=== PATIENT | female | born 1980 | race African-American/Black ===

== ENCOUNTER 2017-03-24 15:48 | Emergency (ER) | payer MEDICAID, OTHER ==
[~2017-03-24] VITALS: Ht 165.1 cm; Wt 70.0 kg
[2017-03-24 15:50] VITALS: BP 130/96; PULSE 83; RESP 24; TEMP 98.7; O2SAT 97
[2017-03-24] MEDS ORDERED: KETOROLAC TROMETHAMINE 60 MG/2 ML (IM) VIAL IM ONE (16:00)
[2017-03-24] MEDS ORDERED: PERI0.126 SWISH-SPIT (16:04)
[2017-03-24] MEDS ORDERED: AMOX500C PO (16:04)
[2017-03-24] MEDS ORDERED: IBUP1TAB7 PO (16:04)
--- NOTE | 2017-03-24 16:07 | PD ---
HPI Chief Complaint: Oral / Dental Pain or Problem Time Seen by Provider: 16:00 Travel History International Travel<30 days: No Contact w/Intl Traveler<30days: No Traveled to known affect area: No History of Present Illness HPI 36-year-old female presents to emergency Department with complaint of left upper tooth pain that started today. She said she lost her cavity filling a while back with onset of the pain today. Pain is radiating to the left ear. Describes pain as sharp and shooting. Rates pain 10/10. Pain is constantly aggravating. No known relieving factors. Tried taking BC powder for symptom management. Also tried [id number] dental filling. Denies fever, vomiting. Denies sore throat or difficulty swallowing. Has no other medical complaints. No known allergies no other modifying factors or associated signs and symptoms. PFSH Past Medical History ?: Not Social History Tobacco Use: No Allergies-Medications (Allergen,Severity, Reaction): Coded Allergies: No Known Allergies (Unverified , 03/24/17) Reported Meds & Prescriptions Reported Meds & Active Scripts Active Peridex Liq (Chlorhexidine Gluconate (Mouth) Liq) 0.12% Soln 15 Ml SWISH-SPIT BID 10 Days Ibuprofen 800 Mg Tab 800 Mg PO Q6HR PRN Amoxicillin 500 Mg Cap 500 Mg PO BID 10 Days Review of Systems Except as stated in HPI: all other systems reviewed are Neg Physical Exam Narrative GENERAL: Well-nourished, well-developed black female patient, in no acute distress; afebrile, nontoxic-appearing; tearful SKIN: Warm and dry. HEAD: Atraumatic. Normocephalic. No facial edema, erythema, tenderness on palpation. No lymphadenopathy. EYES: Pupils equal and round. No scleral icterus. No injection or drainage. ENT: Mucosa pink and moist. No erythema or exudates. No uvular edema. No uvular , palatal, or tonsillar deviation. Airway patent. EARS: Bilateral pinnae and external canals appear within normal limits. Bilateral tympanic membranes without erythema, dullness or perforation. MOUTH: Mucous membranes moist, no lesions, tongue and gums appear normal. Left upper first molar with tenderness on palpation; large dental cavity noted. Surrounding gingiva is without erythema, edema, drainage. No obvious abscess noted. NECK: Trachea midline. No lymphadenopathy. CARDIOVASCULAR: Regular rate. RESPIRATORY: No accessory muscle use. GASTROINTESTINAL: Rounded. MUSCULOSKELETAL: No obvious deformities. No clubbing. No cyanosis. No edema. NEUROLOGICAL: Awake and alert. Oriented 3. No obvious cranial nerve deficits. Motor grossly within normal limits. Normal speech. PSYCHIATRIC: Appropriate mood and affect; insight and judgment normal. Data Data Last Documented VS Vital Signs Date Time Temp Pulse Resp B/P (MAP) Pulse Ox O2 Delivery O2 Flow Rate FiO2 03/24/17 15:50 98.7 83 24 130/96 (107) 97 Orders Orders Ketorolac Inj (Toradol Inj) (03/24/17 16:00) Ed Discharge Order (03/24/17 16:07) [facility] Medical Decision Making Medical Screen Exam Complete: Yes Emergency Medical Condition: Yes Medical Record Reviewed: Yes Differential Diagnosis Dentalgia, dental cavity, dental abscess, gingivitis, less likely peritonsillar abscess Narrative Course 36-year-old female with dentalgia and dental cavity to left upper first molar. No facial edema or erythema. Patient is afebrile and nontoxic-appearing. Denies fever, vomiting. Toradol administered in the ER. Emergency dental information sheet provided for follow-up. Instructed patient to follow up with dentist. Amoxicillin, Peridex mouth rinse, ibuprofen prescribed for home. Instructed patient to follow up with primary care provider. Patient verbalizes understanding and agreement with treatment plan. Patient is medically cleared and stable for discharge. Discussed reasons to return to the emergency department. Patient agrees with treatment plan. The patients vital signs are stable and the patient is stable for outpatient follow-up and treatment. Patient discharged home, stable and in no acute distress. Diagnosis Primary Impression: Tooth pain Additional Impression: Dental cavity Referrals: [facility]ist Primary Care Physician Patient Instructions: Dental Abscess (ED), Dental Caries (ED), General Instructions, Toothache (ED) Additional Instructions: Complete full course of antibiotics Ibuprofen or Tylenol as directed and as needed to reduce pain and inflammation Use Peridex as directed for oral hygiene Warm or cool compresses to the affected area Follow-up with dentist Follow-up with primary care provider Return to emergency department immediately with worsening of symptoms Med/Other Pt SpecificInfo: Prescription(s) given Scripts Chlorhexidine Gluconate (Mouth) Liq (Peridex Liq) 0.12% Soln 15 ML SWISH-SPIT BID for 10 Days, #300 ML 0 Refills Prov: Bhavya Vaca 03/24/17 Ibuprofen (Ibuprofen) 800 Mg Tab 800 MG PO Q6HR Y for PAIN, #30 TAB 0 Refills Prov: Bhavya Vaca 03/24/17 Amoxicillin (Amoxicillin) 500 Mg Cap 500 MG PO BID for Infection for 10 Days, #20 CAP 0 Refills Prov: Bhavya Vaca 03/24/17 Disposition: 01 DISCHARGE HOME Condition: Stable Bhavya Vaca Mar 24, 2017 16:07
== END 2017-03-24 16:27 | disposition home or self-care (01) ==
LOC: NEPK 15:48
DX: K02.9 Dental caries, unspecified (principal)
CPT/HCPCS: 96372; 99284; J1885

== ENCOUNTER 2017-04-23 16:40 | Emergency (ER) | payer MEDICAID ==
[~2017-04-23] VITALS: Ht 154.9 cm; Wt 71.0 kg
[~2017-04-23 16:40] MED LIST: AMOX500C PO; IBUP1TAB7 PO; PERI0.126 SWISH-SPIT
[2017-04-23 16:41] VITALS: BP 143/87; PULSE 74; RESP 18; TEMP 97.6; O2SAT 99
== END 2017-04-23 19:10 | disposition left against medical advice (07) ==
LOC: NED 16:40
DX: K13.79 Other lesions of oral mucosa (principal); Z53.21 Procedure and treatment not carried out due to patient leaving prior to being seen by health care provider

== ENCOUNTER 2017-10-05 13:36 | Emergency (ER) | END 2017-10-05 16:30 | disposition left against medical advice (07) | DX: R53.1 Weakness (principal) ==